=== PATIENT | male | born 1990 | race Caucasian/White ===

== ENCOUNTER 2024-01-27 01:46 | Emergency (ER) | payer OTHER, SELFPAY ==
[2024-01-27 01:49] VITALS: BP 135/82
--- NOTE | 2024-01-27 02:04 | ED.GENMED ---
History of Present Illness
General
Chief Complaint: Allergic Reaction
Source: patient
Exam Limitations: none
Time Seen by Provider: 01/27/24 01:58
Nursing documentation reviewed up to this point in time: agreed with
Travel History
Have you had any contact with someone who has COVID-19?: No
Do you have any symptoms of coronavirus? Fever > 100 degrees, chills, cough, shortness of breath, sore throat, loss of taste or smell, muscle aches, or headache?: No
History of Present Illness
History of Present Illness:
The patient is a 33-year-old man who reports that he took Mucinex DM 3 hours ago. He reports that he has gradually since then developed lip swelling, lip itchiness, and abnormal feeling in his throat, chest tightness, and concerns for an allergic
reaction. Patient denies nausea and vomiting. He is also noticed that one of his fingers looks more red and swollen but he denies any other areas of skin rash. He reports that a year or 2 ago he had been taking Ceftin as well as Mucinex and
developed a similar reaction but assumed that he was allergic to the Ceftin.
Past History
Past History
ED Past Medical History: Asthma
ED Past Surgical History: Other (Nasal surgery)
Social History
Tobacco: Non-smoker
Alcohol: None
Drug: None
Employment: Employed
Family History
Family History: Other
Review of Systems
Review of Systems
Allergies reviewed?: Yes
All Other Systems: ROS reviewed and negative except as documented in HPI and ROS
Constitutional: Reports no symptoms
EENT: Reports other
Respiratory: Reports trouble breathing
Cardiac: Reports no symptoms
ABD/GI: Reports no symptoms
: Reports no symptoms
Musculoskeletal: Reports no symptoms
Skin: Reports other
Neurological: Reports no symptoms
Endocrine: Reports no symptoms
Hematologic/Lymphatic: Reports no symptoms
Psychiatric: Reports no symptoms
Phy Exam
Physical Exam
Physical Exam:
Physical Exam
General: no apparent distress, not acutely ill. Questionable swelling of lower lip. Tongue appears normal.
Neck: supple. Uvula appears normal. Airway is widely patent. No stridor. No pooling of saliva
Heart: s1/s2 regular rate and rhythm, no murmur. equal radial pulses.
Lungs: no acute respiratory distress. clear bilaterally
Abdomen: normal bowel sounds. not tender. no CVAT
Neuro: alert and oriented. no focal neurological deficits
Skin: no rash
Psychiatric: well kept. interactive and cooperative
Extremities: no edema. no calf tenderness. negative homans. good distal pulses
Course
Orders/Labs/Results
Orders:
Orders
01/27/24 02:03
Diphenhydramine [Benadryl] 50 mg IV NOW STA
Famotidine [Pepcid] 20 mg IV NOW STA
01/27/24 02:04
Dexamethasone Sod Phosphate [Decadron] 10 mg IV NOW STA
Vital Signs
Initial and Last Documented VS:
Initial Vital Signs
Temp Pulse Resp BP Pulse Ox
97.9 F 74 20 135/82 98
01/27/24 01:49 01/27/24 01:49 01/27/24 01:49 01/27/24 01:49 01/27/24 01:49
Last Documented Vital Signs
Temp Pulse Resp BP Pulse Ox
97.9 F 66 14 122/72 97
01/27/24 01:49 01/27/24 04:23 01/27/24 04:23 01/27/24 04:23 01/27/24 04:23
MDM/Problems Addressed
Differential Diagnosis Includes:
Acute allergic reaction, acute pharyngitis
MDM/Problems Addressed:
Patient presents with acute lower lip swelling and shortness of breath after taking Mucinex DM
Acute Exacerbation and/or Progression of Chronic Illness:
Patient is acutely hypertensive, however, he is slightly anxious and feels uncomfortable which is likely causing this.
Acute Exacerbation and/or Progression of Chronic Illness: HTN
*Pulse Oximetry
Patient hypoxic: no
*Internet Systems Administrator Interpretation
Rate: normal
Interpretation: normal
Rhythm: sinus
*Critical Care Note
Total Time (30-74mins, 75-104mins- exclusive of procedures): Not Applicable
Patient Management
Social determinants of health affecting care: Living situation and Strong social support
Escalation/DeEscalation of care consider admission/obs:
Patient feels so much better. He denies any feelings of shortness of breath or throat swelling. His itching is gone. Patient encouraged to return immediately with any increased swelling of lips or tongue or any difficulty breathing.
ED Attending Note
-
Portions of this chart may have been created with voice recognition software.� Occasional wrong word or��sound alike� substitutions may have occurred due to the inherent limitations of voice recognition software.
Discharge Plan
Departure
Patient Disposition: Home (Routine Discharge)
Date of Disposition: 01/27/24
Time of Disposition: 03:56
Patient with high blood pressure during this ER visit?: Yes
Condition: Good
Covid-19: Not Applicable
Discharge Problem:
Allergic reaction caused by a drug
Instructions: Allergic Reaction ED
Prescriptions:
New
prednisone 20 mg tablet
20 mg PO DAILY Qty: 4 0RF
No Action
epinephrine [EpiPen 2-Yuval] 0.3 mg/0.3 mL auto-injector
0.3 mg IM ONCE Qty: 2 0RF
doxycycline hyclate 100 mg capsule
100 mg PO BID Qty: 14 0RF
Referrals:
Aung Goldstein MD [Family Provider] -
Activity Restrictions/Additional Instructions:
Do not take Mucinex! Please take 25 mg of Benadryl every 6 hours as needed for any lingering symptoms such as itching.
Return for any difficulty breathing or increased swelling of the lips or tongue
Interventions
Interventions:
*Risk Screen - Suicide Last Done: 01/27/24 01:52
*General Assessment Last Done: 01/27/24 01:52
*Neglect/Abuse Screening Last Done: 01/27/24 01:52
ED- Fall Risk Assessment Last Done: 01/27/24 01:52
*ED COVID-19 Vaccine History Last Done: 01/27/24 01:52
*Nursing Disposition Last Done: 01/27/24 04:23
ED- Cardiac Assessment Last Done: 01/27/24 02:08
ED- Pulmonary Assessment Last Done: 01/27/24 02:07
ED-Skin Assessment Last Done: 01/27/24 02:09
Discharge Date and Time
Discharge Date/Time: 01/27/24 04:00
Print Language: NEPALESE
[2024-01-27] MEDS: DECADRON 10 MG IV (02:11)
[2024-01-27] MEDS: PEPCID 20 MG IV (02:11)
[2024-01-27] MEDS: BENADRYL 50 MG IV (02:11)
[2024-01-27 02:25] VITALS: BP 126/74
[2024-01-27 02:27] VITALS: BMI 27.0
[2024-01-27 03:00] VITALS: BP 119/77
[2024-01-27 04:00] VITALS: BP 122/71
[2024-01-27 04:23] VITALS: BP 122/72
== END 2024-01-27 04:00 | disposition home or self-care (01) ==
LOC: EMR 01:46
PROVIDERS: EMERGENCY PHYSICIAN Emergency Medicine; FAMILY PHYSICIAN Family Medicine
DX: R22.0 Localized swelling, mass and lump, head (principal); L29.9 Pruritus, unspecified; R07.89 Other chest pain; R06.02 Shortness of breath; R03.0 Elevated blood-pressure reading, without diagnosis of hypertension; T48.4X5A Adverse effect of expectorants, initial encounter; J45.909 Unspecified asthma, uncomplicated; Z88.1 Allergy status to other antibiotic agents; Z88.8 Allergy status to other drugs, medicaments and biological substances
CPT/HCPCS: 99284; 96374; 96375 ×2